=== PATIENT | female | born 1965 | race Caucasian/White ===

== ENCOUNTER 2020-10-21 10:39 | Emergency (ER) | payer BC, OTHER ==
[~2020-10-21] VITALS: Ht 167.6 cm; Wt 81.6 kg
--- NOTE | 2020-10-21 10:50 | NUR ---
bib self c/o dull l side rib area pain x 2 days, cough x 2-3 weeks. vs checked. hooked on monitor seen by md. iv access started blood draw done sent to lab.
[2020-10-21 11:11] LABS: BASOPHILS % (AUTO) 0.6 % (0.0-2.0); EOSINOPHILS % (AUTO) 5.1 % (0.0-6.0); HEMATOCRIT 40 % (33-45); HEMOGLOBIN 13.1 g/dL (11.5-14.8); LYMPHOCYTES # (AUTO) 1.8 /CMM (0.8-4.8); MEAN CORPUSCULAR HGB CONC 33 g/dl (31.0-36.0); MEAN CORPUSCULAR VOLUME 89 fL (82-100); MONOCYTES # (AUTO) 0.4 /CMM (0.1-1.30); NEUTROPHILS # (AUTO) 2.7 /CMM (1.8-8.9); NEUTROPHILS % (AUTO) 52.3 % (43.0-81.0); PLATELET COUNT (AUTO) 282 /CMM (150-450); RED BLOOD CELL COUNT(AUTO) 4.52 MIL/uL (4.0-5.2); WHITE BLOOD COUNT (AUTO) 5.2 K/uL (4.3-11.0)
[2020-10-21 11:21] LABS: CALCIUM, SERUM 8.8 mg/dL (8.5-10.1); CARBON DIOXIDE 28 mmol/L (21-32); CHLORIDE 106 mmol/L (98-107); CREATININE 0.8 mg/dL (0.6-1.3); GLUCOSE 99 mg/dL (74-106); POTASSIUM 3.7 mmol/L (3.5-5.1); SODIUM SERUM 141 mmol/L (136-145); UREA NITROGEN, BLOOD 12 mg/dL (7-18)
[2020-10-21 11:34] LABS: ALANINE AMINOTRANSFERASE 19 U/L (12-78); ALBUMIN 3.6 g/dL (3.4-5.0); ALKALINE PHOSPHATASE 86 U/L (46-116); ASPARTATE AMINOTRANSFERASE 11 U/L (15-37); BILIRUBIN,DIRECT 0.1 mg/dL (0.0-0.2); BILIRUBIN,TOTAL 0.4 mg/dL (0.2-1.0); TOTAL PROTEIN, SERUM 7.2 g/dL (6.4-8.2)
[2020-10-21] MEDS ORDERED: IOHEXOL-350 100 ML VIAL IV ONE (11:40)
[2020-10-21] MEDS ORDERED: IV NS 0.9% 250 ML IV ONE (11:41)
[2020-10-21] MEDS ORDERED: CT SWABBABLE VALVE TRANS SET 1 EA INFUS.SET MC ONE (11:41)
--- NOTE | 2020-10-21 12:51 | NUR ---
covid pcr collected sent to lab
--- NOTE | 2020-10-21 13:13 | NUR ---
Patient discharged to home in stable condition. Written and verbal after care instructions given. Patient verbalizes understanding of instruction. IV removed. Catheter intact and site benign. Pressure and 4x4 applied to site. No bleeding noted.
[2020-10-21 13:14] VITALS: BP 126/70
== END 2020-10-21 13:16 | disposition home or self-care (01) ==
LOC: ER 10:42
DX: R07.9 Chest pain, unspecified (principal); R05 Cough; Z20.822 Contact with and (suspected) exposure to COVID-19; Z82.49 Family history of ischemic heart disease and other diseases of the circulatory system; E78.00 Pure hypercholesterolemia, unspecified
CPT/HCPCS: 36415; 71045; 71275; 80048; 80076; 84484; 85025; 93005; 99285; C9803; J7050; Q9967; U0003

== ENCOUNTER 2023-01-18 14:04 | Emergency (ER) | payer BC, OTHER ==
[~2023-01-18] VITALS: Ht 172.7 cm; Wt 85.3 kg
--- NOTE | 2023-01-18 14:35 | NUR ---
coung and congestion, sob since . notice satting 91% on ra since last night
[2023-01-18] MEDS ORDERED: ASPIRIN 81 MG TAB.CHEW ONE (14:54)
[2023-01-18] MEDS ORDERED: IPRATROPIUM NEB FS 0.5 MG/2.5 ML AMPUL.NEB NEB ONE (15:00)
[2023-01-18] MEDS ORDERED: ALBUTEROL FS 2.5 MG/3 ML VIAL.NEB NEB ONE (15:00)
[2023-01-18] MEDS ORDERED: CEFTRIAXONE 1GM BAG (ER ONLY) 50 ML IV ONE (15:00)
[2023-01-18] MEDS ORDERED: ASPIRIN 81 MG TAB.CHEW PO ONE (15:00)
[2023-01-18 15:10] LABS: BASOPHILS % (AUTO) 0.6 % (0.0-2.0); EOSINOPHILS % (AUTO) 4.2 % (0.0-6.0); HEMATOCRIT 41 % (33-45); HEMOGLOBIN 13.5 g/dL (11.5-14.8); LYMPHOCYTES # (AUTO) 1.4 K/uL (0.8-4.8); LYMPHOCYTES % (AUTO) 39.5 % (20.0-44.0); MEAN CORPUSCULAR HGB CONC 33 g/dl (31.0-36.0); MEAN CORPUSCULAR VOLUME 86 fL (82-100); MONOCYTES # (AUTO) 0.5 K/uL (0.1-1.30); MONOCYTES % (AUTO) 12.7 % (2.0-12.0); NEUTROPHILS # (AUTO) 1.5 K/uL (1.8-8.9); PLATELET COUNT (AUTO) 229 K/uL (150-450); RED BLOOD CELL COUNT(AUTO) 4.73 MIL/uL (4.0-5.2); WHITE BLOOD COUNT (AUTO) 3.6 K/uL (4.3-11.0)
--- NOTE | 2023-01-18 15:24 | NUR ---
established iv line 20 g left ac ,
--- NOTE | 2023-01-18 15:24 | NUR ---
sputum sample taken sent to lab
--- NOTE | 2023-01-18 15:24 | NUR ---
blood sample obtained sent to lab
--- NOTE | 2023-01-18 15:25 | NUR ---
covid / rapid influ swab taken
[2023-01-18 15:35] LABS: ALANINE AMINOTRANSFERASE 16 U/L (12-78); ALBUMIN 3.8 g/dL (3.4-5.0); ALKALINE PHOSPHATASE 91 U/L (46-116); ASPARTATE AMINOTRANSFERASE 13 U/L (15-37); BILIRUBIN,DIRECT 0.1 mg/dL (0.0-0.2); BILIRUBIN,TOTAL 0.2 mg/dL (0.2-1.0); CALCIUM, SERUM 8.9 mg/dL (8.5-10.1); CARBON DIOXIDE 27 mmol/L (21-32); CHLORIDE 106 mmol/L (98-107); CREATININE 0.9 mg/dL (0.6-1.3); GLUCOSE 107 mg/dL (74-106); POTASSIUM 3.7 mmol/L (3.5-5.1); SODIUM SERUM 141 mmol/L (136-145); TOTAL PROTEIN, SERUM 7.4 g/dL (6.4-8.2); UREA NITROGEN, BLOOD 15 mg/dL (7-18)
[2023-01-18] MEDS ORDERED: ALBUTEROL FS 2.5 MG/3 ML VIAL.NEB ONE (15:35)
[2023-01-18] MEDS ORDERED: IPRATROPIUM NEB FS 0.5 MG/2.5 ML AMPUL.NEB ONE (15:35)
[2023-01-18] MEDS ORDERED: predniSONE 50 MG TABLET PO ONE (16:30)
[2023-01-18] MEDS ORDERED: predniSONE 20 MG TABLET ONE (16:30)
[2023-01-18] MEDS ORDERED: ALBU8.5H8 INH ×2 (16:31→16:43)
[2023-01-18] MEDS ORDERED: PRED50TA PO ×2 (16:31→16:43)
--- NOTE | 2023-01-18 16:42 | NUR ---
Patient discharged to home in stable condition. Written and verbal after care instructions given. Patient verbalizes understanding of instruction.
--- NOTE | 2023-01-18 16:42 | NUR ---
IV removed. Catheter intact and site benign. Pressure and 4x4 applied to site. No bleeding noted.
[2023-01-18 16:43] VITALS: BP 119/61
== END 2023-01-18 16:43 | disposition home or self-care (01) ==
LOC: ER 14:04
DX: J45.909 Unspecified asthma, uncomplicated (principal); E78.00 Pure hypercholesterolemia, unspecified; Z20.822 Contact with and (suspected) exposure to COVID-19
CPT/HCPCS: 99285; 96365; 71045; 87426; 93005; 87804 ×2; 87205; 84145; 85025; 80048; 87040 ×2; 80076; 85378; 36415; 84484; 83880; 94799; 94640; J7030; A4223; J0696; C9803